=== PATIENT | male | born 1995 | race Caucasian/White ===

== ENCOUNTER 2017-06-27 23:04 | Emergency (ER) | payer BC ==
[~2017-06-27] VITALS: Ht 172.7 cm; Wt 72.6 kg
[2017-06-27 23:13] VITALS: Ht 172.7 cm; Wt 72.6 kg
[2017-06-28 02:45] VITALS: BP 141/69
== END 2017-06-28 02:45 | disposition home or self-care (01) ==
LOC: ED 23:04
DX: S02.2XXA Fracture of nasal bones, initial encounter for closed fracture (principal); S01.21XA Laceration without foreign body of nose, initial encounter; S13.4XXA Sprain of ligaments of cervical spine, initial encounter; V49.9XXA Car occupant (driver) (passenger) injured in unspecified traffic accident, initial encounter; Y93.89 Activity, other specified; Y92.89 Other specified places as the place of occurrence of the external cause; Y99.8 Other external cause status
CPT/HCPCS: 90715; J2001